=== PATIENT | male | born 1995 | race Caucasian/White ===

== ENCOUNTER 2016-06-18 07:07 | Emergency (ER) | payer BC ==
[2016-06-18 07:22] VITALS: BP 110/72
[2016-06-18] MEDS ORDERED: Ketorolac INJ* 60 MG/2 ML VIAL IM ONE (08:22)
[2016-06-18] MEDS ORDERED: Ketorolac INJ* 60 MG/2 ML VIAL ONE (08:25)
--- NOTE | 2016-06-18 08:54 | UC ---
Christopher Basurto Karl, scribed for Monica Avlies DO on 06/18/16 at 0715 . Back Pain HPI - HPI Summary HPI Summary: Pt is a 20 y/o male that presents to [facility] c/o lower back pain that began last night after working out. Pt reported that he did not properly warm up or stretch his back, and felt a shudder/spasm in his middle/right lower back while doing a squat and has had pain ever since. Pt stated he cannot move his head down and that his back pain is non-radiating at a 7/10 secondary to motions in certain directions such as looking down and sitting up. Pt's pain is alleviated when he is in a certain position at rest. Pt denied numbness, weakness, tingling , bowel/bladder changes and any other health problems. Hx: similar episode earlier this year. - History of Current Complaint Stated Complaint: BACK MUSCLE PAIN Hx Obtained From: Patient Onset/Duration: Sudden Onset, Lasting Days - 1 Timing: Intermittent - with certain movements Severity Initially: Moderate Severity Currently: Moderate Pain Intensity: 8 - back pain Pain Scale Used: 0-10 Numeric Back Pain: Is Discrete @ - mid-right lower back Character: Spasmodic Aggravating: Movement Alleviating: Rest, Position Associated Signs And Symptoms: Negative: Swelling, Redness, Bruising, Fever, Weakness, Numbness, Tingling, Abdominal Pain, Bladder Incontinence, Bowel Incontinence - Risk Factors Cauda Equina Risk Factors: Negative - Allergies/Home Medications Allergies/Adverse Reactions: Allergies Allergy/AdvReac Type Severity Reaction Status Date / Time No Known Allergies Allergy Verified 01/20/16 13:07 Home Medications: Home Medications Diphenhydramine-Acetaminophen [Tylenol Pm Extra Strength 500-25 mg] 06/18/16 [ History] PMH/Surg Hx/FS Hx/Imm Hx Previously Healthy: Yes Endocrine History Of: Denies: Diabetes, Thyroid Disease Cardiovascular History Of: Denies: Cardiac Disorders, Hypertension, Pacemaker/ICD Respiratory History Of: Denies: COPD, Asthma GI/ History Of: Denies: Gastroesophageal Reflux, Renal Disease Neurological History Of: Denies: CVA, Dementia, Seizures Other History Of: Negative For: Anticoagulant Therapy - Surgical History Surgical History: Yes Surgery Procedure, Year, and Place: Left ear tubes. Left wrist surgery fracture 's repaired/resetting - Family History Known Family History: Positive: Cardiac Disease - grandfather - CHF, Other - Colon - CA, RA Negative: Hypertension - Social History Alcohol Use: Occasionally - pt stated that he stopped drinking this year (2017) Alcohol Amount: 1-2 drinks per night Substance Use Type: None Smoking Status (MU): Former Smoker Type: Cigarettes Amount Used/How Often: cigarette here and there, not an every day smoker Have You Smoked in the Last Year: No - Immunization History Most Recent Influenza Vaccination: not this season Most Recent Tetanus Shot: UTD Review of Systems Constitutional: Negative Skin: Negative Eyes: Negative ENT: Negative Respiratory: Negative Cardiovascular: Negative Gastrointestinal: Negative Genitourinary: Negative Motor: Negative Neurovascular: Negative Musculoskeletal: Decreased ROM - back/head/neck, Myalgia - lower mid-right back Neurological: Negative Psychological: Negative All Other Systems Reviewed And Are Negative: Yes Physical Exam Triage Information Reviewed: Yes Appearance: Well-Appearing, No Pain Distress, Well-Nourished Vital Signs: Temp Pulse Resp BP Pulse Ox 98.1 F 72 16 110/72 100 06/18/16 07:17 06/18/16 07:17 06/18/16 07:17 06/18/16 07:17 06/18/16 07:17 Vital Signs Reviewed: Yes Eyes: Positive: Conjunctiva Clear. Negative: Discharge ENT: Positive: Hearing grossly normal. Negative: Muffled/hoarse voice Neck exam: Normal Neck: Positive: Supple Respiratory: Positive: Lungs clear, Normal breath sounds, No respiratory distress, No accessory muscle use Cardiovascular: Positive: RRR, No Murmur Musculoskeletal Exam: Other - paraspinal spasm, psoas tender point on the right Musculoskeletal: Positive: ROM Limited @ - with flexion and extension Neurological: Positive: Alert, Muscle Tone Normal Psychological Exam: Normal Psychological: Positive: Age Appropriate Behavior Skin Exam: Normal, Other - warm, dry, normal color Back Pain Course/Dx - Differential Dx/Diagnosis Differential Diagnosis/HQI/PQRI: Herniated Disc, Strain, Sprain Provider Diagnoses: low back strain, muscle spasm Discharge - Discharge Plan Condition: Stable Disposition: HOME Prescriptions: Cyclobenzaprine TAB* [Flexeril TAB*] 10 mg PO TID PRN #30 tab PRN Reason: Pain Naproxen [Naproxen 500 MG TABS] 500 mg PO BID #14 tab Patient Education Materials: Low Back Strain (ED), Muscle Spasm (ED) Referrals: Alan Gaspar MD [Primary Care Provider] - 2 Weeks Additional Instructions: MUSCLE RELAXERS: Muscle relaxing medications are usually prescribed for acute muscle spasm or injury to the neck and back. They are often combined with antiinflammatory pain medication for increased relief. You may stop the muscle relaxer when the pain and stiffness have improved. Start the medication again if spasms recur. Muscle relaxers may cause drowsiness, especially with the first dose. Do not operate machinery or drive while under the effects of the medication. Most muscle relaxers last up to 24 hours. Do not combine the medication with alcohol. ANTI-INFLAMMATORY MEDICATION: You have received a prescription for an antiinflammatory agent. This is an excellent, safe drug for pain control. In addition, it has potent antiinflammatory effects which are beneficial, especially in the treatment of injuries, arthritis, or tendonitis. It's best to take this medicine with food. Persons with ulcer disease or allergy to aspirin should notify their physician of this before taking this drug. Take the medication exactly as prescribed. Don't take additional doses unless instructed to do so by your doctor. If you develop wheezing, shortness of breath, hives, faintness, stomach pain, vomiting, or dark black stools, return for re-evaluation at once. ALTERNATE HOT AND COLD ONE RIGHT AFTER THE OTHER FOR 10-20 MINUTES EACH. ICE PACKS: Apply ice packs frequently against the painful area. Many different schedules are recommended, such as "20 minutes on, 20 minutes off" or "one hour ice, two hours rest." If you need to work, you may need to go longer between ice treatments. You should plan to have the area ice packed AT LEAST one fourth of the time. The ice should be applied over the wrap, tape, or splint, or over a layer of cloth -- not directly against the skin. Some ice bags have a built-in cloth and can be put directly on the skin. WARM PACKS: Apply gentle heat (such as a heating pad or hot water bottle) for about 20 to 30 minutes about every two hours -- at least four times daily. Warmth and elevation will help you make a more rapid recovery, and will ease the pain considerably. Do not use HOT heat, and never apply heat for longer than 30 minutes. The continuous heat can invisibly damage skin and muscles -- even when no burn is seen on the surface. Damaged muscles can make you MORE sore. PHYSICAL THERAPY REFERRAL: You have been prescribed physical therapy. Treatments may include stretching, exercise, application of heat or cold, and other modalities. After an injury, PT can reduce swelling and pain. In recovery, PT is used to restore mobility and strength. Your specific treatment goals are: Reduction of Swelling (EGS, US, ice as needed) __x___ Pain Reduction (EGS, US, ice as needed) TENS Pack Fitting and Instruction Wound Hydrotherapy __x___ Preservation of Mobility Catholic of Mobility Strength Catholic __x___ Work or Sports Hardening This instruction sheet also serves as your PHYSICAL THERAPY REFERRAL! Please take it with you to the therapist, so he/she will be aware of your diagnosis and treatment plan. You may see the physical therapist of your choice for these treatments, but may wish to check with your insurance to be sure the provider you select is covered. It's important to see the doctor to whom you have been referred for follow up. SPORTS PRECAUTIONS: Ask your doctor before returning to any sporting activity! In general, however, you can follow the rule "IF IT DOESN'T FEEL GOOD, DON'T DO IT." Pain indicates stress on the injured area. Begin slowly. Exercise the non-injured areas to preserve muscle tone and fitness. When the pain allows, begin simple motion of the injured area, then progress to active exercise when motion is painfree. Before competition, the area should be normally strong and have full range of motion -- and should be painfree in use. "Playing with pain" is not in the best interest of your health. Usually, some form of protection, such as tape or padding, is desirable for competition for several months after the injury. YOU WOULD LIKELY BENEFIT FROM OSTEOPATHIC MANIPULATION. WE RECOMMEND THAT YOU FIND AN OSTEOPATHIC PHYSICIAN IN YOUR AREA WHO DOES LYMPHATIC, MYOFACIAL AND VISCERAL WORK The documentation as recorded by the Christopher paiz Karl accurately reflects the service I personally performed and the decisions made by me, Monica Aviles DO.
== END 2016-06-18 08:54 | disposition home or self-care (01) ==
LOC: UCEAST 07:07
DX: S39.012A Strain of muscle, fascia and tendon of lower back, initial encounter (principal); M62.830 Muscle spasm of back; X50.3XXA Overexertion from repetitive movements, initial encounter; Y93.B9 Activity, other involving muscle strengthening exercises
CPT/HCPCS: 96372; 99212; G0463; J1885

== ENCOUNTER 2016-08-12 12:42 | Emergency (ER) | payer BC ==
[2016-08-12 13:31] VITALS: BP 130/69
--- NOTE | 2016-08-12 14:31 | UC ---
Skin Complaint HPI - HPI Summary HPI Summary: Pt reports that he fell running yesterday evening on the ice. Reports that front teeth upper and lower went into upper and lower lips. Has abrasion on upper lip and nose and upper lip and lower lip are swollen and tender. - History of Current Complaint Chief Complaint: UCLaceration Time Seen by Provider: 08/12/16 13:55 Stated Complaint: FACE/MOUTH INJURY Hx Obtained From: Patient Onset/Duration: Sudden Onset, Lasting Hours Skin Exposure Onset/Duration: Hours Ago Timing: Constant Onset Severity: Mild Current Severity: Mild Pain Intensity: 7 Pain Scale Used: 0-10 Numeric Location: Face, Other - lips Character: Redness, Raised, Painful Aggravating: Touch Alleviating: Cold Compresses Associated Signs & Symptoms: Positive: Tenderness Related History: Trauma - fall while - Allergy/Home Medications Allergies/Adverse Reactions: Allergies Allergy/AdvReac Type Severity Reaction Status Date / Time No Known Allergies Allergy Verified 01/20/16 13:07 Review of Systems Constitutional: Negative Skin: Other - abrasion Eyes: Negative ENT: Other - abrasion to upper and lower lip Respiratory: Negative Cardiovascular: Negative Gastrointestinal: Negative Genitourinary: Negative Motor: Negative Neurovascular: Negative Musculoskeletal: Negative Neurological: Negative Psychological: Negative All Other Systems Reviewed And Are Negative: Yes PMH/Surg Hx/FS Hx/Imm Hx Previously Healthy: Yes Endocrine History Of: Denies: Diabetes, Thyroid Disease Cardiovascular History Of: Denies: Cardiac Disorders, Hypertension, Pacemaker/ICD Respiratory History Of: Denies: COPD, Asthma GI/ History Of: Denies: Gastroesophageal Reflux, Ulcer, Renal Disease Neurological History Of: Denies: CVA, Dementia, Seizures Other History Of: Negative For: Anticoagulant Therapy - Surgical History Surgical History: Yes Surgery Procedure, Year, and Place: Left ear tubes. Left wrist surgery fracture 's repaired/resetting - Family History Known Family History: Positive: None, Cardiac Disease - grandfather - CHF, Other - Colon - CA, RA Negative: Hypertension - Social History Lives: With Family Alcohol Use: None Alcohol Amount: 1-2 drinks per night Substance Use Type: None Smoking Status (MU): Former Smoker Type: Cigarettes Amount Used/How Often: cigarette here and there, not an every day smoker Have You Smoked in the Last Year: No - Immunization History Most Recent Influenza Vaccination: not this season Most Recent Tetanus Shot: 2013 Physical Exam Triage Information Reviewed: Yes Appearance: Well-Appearing Vital Signs: Initial Vital Signs Temp 98.9 F 08/12/16 13:23 Pulse 68 08/12/16 13:23 Resp 16 08/12/16 13:23 BP 130/69 08/12/16 13:23 Pulse Ox 100 08/12/16 13:23 Vital Signs Reviewed: Yes ENT Exam: Other - upper an dlower lip innr lips, swollen and with abrasion where teeth went into lips Dental Exam: Normal Neck exam: Normal Respiratory Exam: Normal Cardiovascular Exam: Normal Abdominal Exam: Normal Musculoskeletal Exam: Normal Neurological Exam: Normal Psychological Exam: Normal Skin Exam: Other - abrsion to upper lip and nose Course/Dx - Differential Diagnoses - Skin Complaint Differential Diagnoses: Other - abrasions - Diagnoses Provider Diagnoses: abrasions Discharge - Discharge Plan Condition: Stable Disposition: HOME Prescriptions: Cephalexin CAP* [Keflex 500 CAP*] 500 mg PO Q12H #10 cap Lidocaine 2% VISCOUS* [Xylocaine 2% Viscous*] 15 ml SWISH SPIT Q4H PRN #1 btl PRN Reason: Pain Mupirocin 2% OINT* [Bactroban 2 % Oint*] 1 applic TOPICAL BID #1 tube Patient Education Materials: Abrasion (ED) Referrals: Alan Gaspar MD [Primary Care Provider] - Additional Instructions: Please follow up with your PCP or return to clinic as needed.
== END 2016-08-12 14:15 | disposition home or self-care (01) ==
LOC: UCEAST 12:42
DX: S00.511A Abrasion of lip, initial encounter (principal); S00.31XA Abrasion of nose, initial encounter; Z87.891 Personal history of nicotine dependence; W00.0XXA Fall on same level due to ice and snow, initial encounter; Y93.02 Activity, running; Y92.9 Unspecified place or not applicable
CPT/HCPCS: 99212; G0463

== ENCOUNTER 2016-08-13 05:24 | Emergency (ER) | payer BC ==
[2016-08-13 05:31] VITALS: BP 110/52
[2016-08-13] MEDS ORDERED: traMADol TAB* 50 MG PO ONE (05:41)
[2016-08-13] MEDS ORDERED: traMADol TAB* 50 MG ONE (05:44)
--- NOTE | 2016-08-13 05:55 | ED ---
Rodriguez Basurto Matthew, scribed for Gaudencio Carver on 08/13/16 at 0550 . Throat Pain/Nasal Congestion - HPI Summary HPI Summary: A 21 y/o male presents to the ED with constant, gradually worsening dental pain since two days ago. The pain is rated 7/10 in severity. The patient states that he fell and cut the inside of his mouth and underneath his nose. He was seen by his PCP yesterday who prescribed him Abx and lidocaine mouthwash. Associated symptoms including swelling and pain. - History of Current Complaint Chief Complaint: EDDentalPain Hx Obtained From: Patient Onset/Duration: Sudden Onset, Lasting Days, Still Present Severity: Mild Associated Signs And Symptoms: Positive: Negative Cough: None - Allergies/Home Medications Allergies/Adverse Reactions: Allergies Allergy/AdvReac Type Severity Reaction Status Date / Time No Known Allergies Allergy Verified 01/20/16 13:07 PMH/Surg Hx/FS Hx/Imm Hx Endocrine/Hematology History: Denies: Hx Anticoagulant Therapy, Hx Diabetes, Hx Thyroid Disease Cardiovascular History: Denies: Hx Hypertension, Hx Pacemaker/ICD Respiratory History: Denies: Hx Asthma, Hx Chronic Obstructive Pulmonary Disease (COPD) GI History: Denies: Hx Ulcer History: Denies: Hx Renal Disease Neurological History: Denies: Hx Dementia, Hx Seizures Psychiatric History: Denies: Hx Substance Abuse - Cancer History Cancer Type, Location and Year: N - Surgical History Surgery Procedure, Year, and Place: Left ear tubes. Left wrist surgery fracture 's repaired/resetting - Immunization History Date of Tetanus Vaccine: THis year, per patient. Infectious Disease History: No Infectious Disease History: Denies: Hx Clostridium Difficile, Hx Hepatitis, Hx Human Immunodeficiency Virus (HIV), Hx of Known/Suspected MRSA, Hx Shingles, Hx Tuberculosis, Hx Known/ Suspected VRE, Hx Known/Suspected VRSA, History Other Infectious Disease, Traveled Outside the [place] in Last 30 Days - Family History Known Family History: Positive: Cardiac Disease - grandfather - CHF, Other - Colon - CA, RA Negative: Hypertension - Social History Alcohol Use: None Alcohol Amount: 1-2 drinks per night Substance Use Type: Reports: None Smoking Status (MU): Former Smoker Type: Cigarettes Amount Used/How Often: cigarette here and there, not an every day smoker Have You Smoked in the Last Year: No Review of Systems Constitutional: Negative Eyes: Negative ENT: Other - ulcerations to the upper and lower inside lip; swelling at the sight Cardiovascular: Negative Respiratory: Negative Gastrointestinal: Negative Genitourinary: Negative Musculoskeletal: Negative Skin: Other - abrasion under the nose Neurological: Negative Psychological: Normal All Other Systems Reviewed And Are Negative: Yes Physical Exam Triage Information Reviewed: Yes Vital Signs On Initial Exam: Initial Vitals Temp Pulse Resp BP Pulse Ox 97.0 F 53 15 110/52 100 08/13/16 05:25 08/13/16 05:25 08/13/16 05:25 08/13/16 05:25 08/13/16 05:25 Vital Signs Reviewed: Yes Appearance: Positive: Well-Appearing, No Pain Distress Skin: Positive: Dry, Other - Abrasion under the nose Head/Face: Positive: Normal Head/Face Inspection Eyes: Positive: EOMI, KATI ENT: Positive: Normal ENT inspection Dental: Positive: Other - small ulcerations inside the lower lip and upper lip; 2-3mm in size Neck: Positive: Supple, Nontender Respiratory/Lung Sounds: Positive: Clear to Auscultation, Breath Sounds Present Cardiovascular: Positive: RRR, Pulses are Symmetrical in both Upper and Lower Extremities Abdomen Description: Positive: Nontender, Soft Bowel Sounds: Positive: Present Musculoskeletal: Positive: Normal, Strength/ROM Intact Neurological: Positive: Normal, Sensory/Motor Intact, Alert, Oriented to Person Place, Time Psychiatric: Positive: Affect/Mood Appropriate Diagnostics - Vital Signs Vital Signs Temp Pulse Resp BP Pulse Ox 08/13/16 05:25 97.0 F 53 15 110/52 100 - Laboratory Lab Statement: Any lab studies that have been ordered have been reviewed, and results considered in the medical decision making process. EENT Course/Dx - Course Assessment/Plan: A 21 y/o male presents to the ED with ulcerations 2-3mm on the inside of the upper and lower lip. He was already prescribed Abx by his PCP 1 days ago. The patient was discharged home on Tramadol and will follow-up with his PCP. - Diagnoses Provider Diagnoses: Aphthous ulcer of mouth Discharge - Discharge Plan Condition: Stable Disposition: HOME Prescriptions: Tramadol HCl [Ultram] 50 mg PO TID #10 tab MDD 3 Patient Education Materials: Tramadol (By mouth), Canker Sores (ED) Referrals: Alan Gaspar MD [Primary Care Provider] - 4 Days Additional Instructions: Please follow-up with your primary care physician in 4 days. The documentation as recorded by the Rodriguez paiz Matthew accurately reflects the service I personally performed and the decisions made by , Gaudencio Carver.
== END 2016-08-13 05:51 | disposition home or self-care (01) ==
LOC: ED 05:24
DX: K12.0 Recurrent oral aphthae (principal); S00.31XA Abrasion of nose, initial encounter; W19.XXXA Unspecified fall, initial encounter; Y93.9 Activity, unspecified; Y92.9 Unspecified place or not applicable; Z87.891 Personal history of nicotine dependence
CPT/HCPCS: 99282; A9270-GY

== ENCOUNTER 2016-08-14 12:04 | Emergency (ER) | payer BC ==
[2016-08-14 12:17] VITALS: BP 130/60
--- NOTE | 2016-08-14 12:26 | UC ---
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 - Allergy/Home Medications Allergies/Adverse Reactions: Allergies Allergy/AdvReac Type Severity Reaction Status Date / Time No Known Allergies Allergy Verified 08/14/16 12:17 PMH/Surg Hx/FS Hx/Imm Hx Previously Healthy: No - mouth abrasion Endocrine History Of: Denies: Diabetes, Thyroid Disease Cardiovascular History Of: Denies: Cardiac Disorders, Hypertension, Pacemaker/ICD Respiratory History Of: Denies: COPD, Asthma GI/ History Of: Denies: Gastroesophageal Reflux, Ulcer, Renal Disease Neurological History Of: Denies: CVA, Dementia, Seizures Other History Of: Negative For: Anticoagulant Therapy - Surgical History Surgical History: None Surgery Procedure, Year, and Place: Left ear tubes. Left wrist surgery fracture 's repaired/resetting - Family History Known Family History: Positive: None, Cardiac Disease - grandfather - CHF, Other - Colon - CA, RA Negative: Hypertension - Social History Alcohol Use: None Alcohol Amount: 1-2 drinks per night Substance Use Type: None Smoking Status (MU): Former Smoker Type: Cigarettes Amount Used/How Often: cigarette here and there, not an every day smoker Have You Smoked in the Last Year: No - Immunization History Most Recent Influenza Vaccination: not this season Most Recent Tetanus Shot: 2013 Review of Systems Constitutional: Negative Skin: Other Eyes: Negative ENT: Negative Respiratory: Negative Cardiovascular: Negative Gastrointestinal: Negative Genitourinary: Negative Motor: Negative Neurovascular: Negative Musculoskeletal: Negative Neurological: Negative Psychological: Negative All Other Systems Reviewed And Are Negative: Yes Physical Exam Triage Information Reviewed: Yes Appearance: No Pain Distress, Well-Nourished Vital Signs: Initial Vital Signs Temp 98.6 F 08/14/16 12:13 Pulse 60 08/14/16 12:13 Resp 18 08/14/16 12:13 BP 130/60 08/14/16 12:13 Pulse Ox 100 08/14/16 12:13 Vital Signs Reviewed: Yes Eyes: Positive: Conjunctiva Clear ENT: Positive: Pharynx normal, TMs normal. Negative: Nasal congestion Dental Exam: Normal Neck: Positive: Supple, No Lymphadenopathy Respiratory: Positive: Lungs clear, Normal breath sounds, No respiratory distress Cardiovascular: Positive: RRR, No Murmur, Pulses Normal Abdomen Description: Positive: Nontender, Soft Bowel Sounds: Positive: Present Musculoskeletal Exam: Normal Neurological: Positive: Alert Psychological Exam: Normal Skin: Positive: Other - inferior to nase and superior to upper lip- abrasion healing without erythema or edema inside of lower and upper lips- ulcers surrounded by edema and erythema Course/Dx - Course Course Of Treatment: exam completed. cellulitis around mouth ulcers. will change from kelfex to clindamycin. pain control ibuprofen. followup with PCP - Differential Dx - Multi-Symptom Provider Diagnoses: cellulitis surrounding mouth ulcerations Discharge - Discharge Plan Condition: Stable Disposition: HOME Prescriptions: Clindamycin Cap(NF) [Cleocin 300 mg Cap(NF)] 300 mg PO TID #30 cap Patient Education Materials: Cellulitis (ED) Referrals: Alan Gaspar MD [Primary Care Provider] - Additional Instructions: Stop taking cephalexin Start clindamycin as directed Increase fluids and rest Take ibuprofen 800 mg three times a day to reduce inflammation and pain gargle with salt water 3x day Please review your discharge instructions. If your symptoms do not improve please call your primary care provider or return to urgent care
== END 2016-08-14 13:03 | disposition home or self-care (01) ==
LOC: UCEAST 12:04
DX: K12.1 Other forms of stomatitis (principal); K12.2 Cellulitis and abscess of mouth; Z72.0 Tobacco use
CPT/HCPCS: 99212; G0463

== ENCOUNTER 2016-11-29 17:47 | Emergency (ER) | payer BC ==
[2016-11-29 17:52] VITALS: BP 96/56
--- NOTE | 2016-11-29 18:07 | UC ---
General HPI - HPI Summary HPI Summary: TICK REMOVED FROM LEFT WRIST TODAY. THINKS TICK WAS ON WRIST YESTERDAY. - History of Current Complaint Chief Complaint: Carlos Stated Complaint: TICK BITE Time Seen by Provider: 11/29/16 17:49 Hx Obtained From: Patient Onset/Duration: Gradual Onset, Lasting Hours, Still Present Onset Severity: Mild Current Severity: None Associated Signs & Symptoms: Negative: Back Pain, Decreased Responsiveness, Dizziness, Edema, Fever, Headache, Nausea, SOB, Vomiting, Weakness - Allergy/Home Medications Allergies/Adverse Reactions: Allergies Allergy/AdvReac Type Severity Reaction Status Date / Time No Known Allergies Allergy Verified 11/29/16 17:52 Home Medications: Home Medications Multiple Vitamins W/ Minerals [Vitamins & Minerals] 1 tab PO DAILY 11/29/16 [ History Confirmed 11/29/16] PMH/Surg Hx/FS Hx/Imm Hx Previously Healthy: Yes Other History Of: Negative For: Anticoagulant Therapy - Surgical History Surgical History: Yes Surgery Procedure, Year, and Place: Left ear tubes. Left wrist surgery fracture 's repaired/resetting - Family History Known Family History: Positive: None, Cardiac Disease - grandfather - CHF, Other - Colon - CA, RA Negative: Hypertension - Social History Occupation: Employed Full-time Lives: With Family Alcohol Use: None Alcohol Amount: 1-2 drinks per night Substance Use Type: None Smoking Status (MU): Former Smoker Type: Cigarettes Amount Used/How Often: cigarette here and there, not an every day smoker Have You Smoked in the Last Year: No - Immunization History Most Recent Influenza Vaccination: not this season Most Recent Tetanus Shot: 2013 Review of Systems Constitutional: Negative Skin: Rash - TICK REMOVED LEFT WRIST Eyes: Negative ENT: Negative Respiratory: Negative Cardiovascular: Negative Gastrointestinal: Negative Genitourinary: Negative Motor: Negative Neurovascular: Negative Musculoskeletal: Negative Neurological: Negative Psychological: Negative All Other Systems Reviewed And Are Negative: Yes Physical Exam Triage Information Reviewed: Yes Appearance: Well-Appearing, No Pain Distress, Well-Nourished Vital Signs: Initial Vital Signs Temp 98.4 F 11/29/16 17:49 Pulse 68 11/29/16 17:49 Resp 16 11/29/16 17:49 BP 96/56 11/29/16 17:49 Pulse Ox 100 11/29/16 17:49 Vital Signs Reviewed: Yes Eye Exam: Normal ENT Exam: Normal ENT: Positive: Normal ENT inspection, Hearing grossly normal, Pharynx normal, TMs normal Dental Exam: Normal Neck exam: Normal Neck: Positive: Supple, Nontender, No Lymphadenopathy Respiratory Exam: Normal Respiratory: Positive: Chest non-tender, Lungs clear, Normal breath sounds, No respiratory distress Cardiovascular Exam: Normal Cardiovascular: Positive: RRR, No Murmur, Pulses Normal, Brisk Capillary Refill Abdominal Exam: Normal Abdomen Description: Positive: Nontender, No Organomegaly Musculoskeletal Exam: Normal Musculoskeletal: Positive: Strength Intact, ROM Intact, No Edema Neurological Exam: Normal Psychological Exam: Normal Psychological: Positive: Normal Response To Family Skin Exam: Normal Course/Dx - Differential Dx - Multi-Symptom Differential Diagnoses: Metabolic Abnormality Provider Diagnoses: TICK BITE PROPHYLAXIS Discharge - Discharge Plan Condition: Stable Disposition: HOME Prescriptions: DOXYcycline CAP(*) [DOXYcycline 100MG CAP(*)] 200 mg PO ONCE #2 cap Patient Education Materials: Tick Bite (ED) Referrals: Alan Gaspar MD [Primary Care Provider] -
== END 2016-11-29 18:08 | disposition home or self-care (01) ==
LOC: UCEAST 17:47
DX: Z29.8 Encounter for other specified prophylactic measures (principal); Z87.891 Personal history of nicotine dependence
CPT/HCPCS: 99212; G0463

== ENCOUNTER → 2017-04-14 21:41 | Emergency (ER) | payer SELFPAY ==
[~2017-04-14 21:41] MED LIST: PPD test dose* 5 TU/0.1 ML TEST (*USE PPD ORDER SET*) ONE
== END | disposition home or self-care (01) ==
LOC: OHEAST 21:41
DX: Z11.1 Encounter for screening for respiratory tuberculosis (principal)

== ENCOUNTER 2017-04-27 20:11 | Emergency (ER) | payer BC ==
[2017-04-27 20:22] VITALS: BP 129/65
--- NOTE | 2017-04-27 21:17 | UC ---
Skin Complaint HPI - HPI Summary HPI Summary: Patient is concerned about recent dx of Molluscum seeking information and referrals - History of Current Complaint Chief Complaint: UCSkin Time Seen by Provider: 04/27/17 21:03 Stated Complaint: RASH Hx Obtained From: Patient Onset/Duration: Sudden Onset, Lasting Days Timing: Constant Location: Discrete - genital area Aggravating Factor(s): Nothing Alleviating Factor(s): Nothing Associated Signs & Symptoms: Positive: Negative - Allergy/Home Medications Allergies/Adverse Reactions: Allergies Allergy/AdvReac Type Severity Reaction Status Date / Time No Known Allergies Allergy Verified 04/27/17 20:22 Home Medications: Home Medications NK [No Home Medications Reported] 04/27/17 [History Confirmed 04/27/17] Review of Systems Constitutional: Negative Skin: Rash Eyes: Negative ENT: Negative Respiratory: Negative Cardiovascular: Negative Gastrointestinal: Negative Genitourinary: Negative Motor: Negative Neurovascular: Negative Musculoskeletal: Negative Neurological: Negative Psychological: Negative Is Patient Immunocompromised?: No All Other Systems Reviewed And Are Negative: Yes PMH/Surg Hx/FS Hx/Imm Hx Previously Healthy: Yes Other History Of: Negative For: Anticoagulant Therapy - Surgical History Surgical History: Yes Surgery Procedure, Year, and Place: Left ear tubes. Left wrist surgery fracture 's repaired/resetting - Family History Known Family History: Positive: None, Cardiac Disease - grandfather - CHF, Other - Colon - CA, RA Negative: Hypertension - Social History Occupation: Student Lives: With Family Alcohol Use: Occasionally Alcohol Amount: 1-2 drinks per night Substance Use Type: None Smoking Status (MU): Former Smoker Type: Cigarettes Amount Used/How Often: cigarette here and there, not an every day smoker Have You Smoked in the Last Year: No - Immunization History Most Recent Influenza Vaccination: not this season Most Recent Tetanus Shot: 2013 Physical Exam Triage Information Reviewed: Yes Appearance: Well-Appearing, No Pain Distress, Well-Nourished Vital Signs: Initial Vital Signs Temp 97.6 F 04/27/17 20:17 Pulse 73 04/27/17 20:17 Resp 12 04/27/17 20:17 BP 129/65 04/27/17 20:17 Pulse Ox 100 04/27/17 20:17 Vital Signs Reviewed: Yes Eye Exam: Normal Eyes: Positive: Conjunctiva Clear ENT Exam: Normal ENT: Positive: Normal ENT inspection, Hearing grossly normal. Negative: Trismus , Muffled voice, Hoarse voice Dental Exam: Normal Neck exam: Normal Neck: Positive: 1 Respiratory Exam: Normal Respiratory: Positive: No respiratory distress, No accessory muscle use Cardiovascular Exam: Normal Cardiovascular: Positive: RRR, Brisk Capillary Refill Musculoskeletal Exam: Normal Musculoskeletal: Positive: Strength Intact, ROM Intact, No Edema Neurological Exam: Normal Neurological: Positive: Alert, Muscle Tone Normal Psychological Exam: Normal Skin Exam: Other Skin: Positive: Other - self report Molluscum Course/Dx - Course Course Of Treatment: referal to Dr. Toribio for treatment follow up this week - Diagnoses Provider Diagnoses: Molluscum Discharge - Discharge Plan Condition: Stable Disposition: HOME Patient Education Materials: Molluscum Contagiosum (ED) Referrals: Gallito Toribio MD [Medical Doctor] - 3 Days
== END 2017-04-27 21:33 | disposition home or self-care (01) ==
LOC: UCEAST 20:11
DX: B08.1 Molluscum contagiosum (principal); Z87.891 Personal history of nicotine dependence; Z72.89 Other problems related to lifestyle
CPT/HCPCS: 99211; G0463

== ENCOUNTER 2017-07-30 13:44 | Emergency (ER) | payer BC ==
[2017-07-30 14:46] VITALS: BP 96/64
--- NOTE | 2017-07-30 15:43 | UC ---
Eye Complaint HPI - HPI Summary HPI Summary: 22 y/o male presents to the urgent care c/o tiny dots that itches in the lateral side of his RT eye for the past 5 days. Pt reports her girlfriend had similar symptoms last week and later she developed a stye. Pt denies eye pain, eye drainage, photophobia, visual disturbance, URI, ATKINSON, chest pain, SOB, abdominal pain,N/V/D - History of Current Complaint Chief Complaint: UCSkin Stated Complaint: BUMPS AROUND EYE Time Seen by Provider: 07/30/17 15:40 Hx Obtained From: Patient Onset/Duration: Gradual Onset, Lasting Days - 5 days, Still Present Timing: Constant Severity Initially: Mild Severity Currently: Mild Pain Intensity: 0 Pain Scale Used: 0-10 Numeric Location of Injury: Periorbital - lateral side of RT eye w/ discrete rash Aggravating Factor(s): Other - itching Alleviating Factor(s): Nothing Associated Signs And Symptoms: Negative: Photophobia, Drainage (Clear), Drainage (Purulent), Vision Impairment Bilateral, Fever, Swelling - Risk Factors Penetrating Injury Risk Factor: Negative Acute Glaucoma Risk Factors: Negative - Allergies/Home Medications Allergies/Adverse Reactions: Allergies Allergy/AdvReac Type Severity Reaction Status Date / Time No Known Allergies Allergy Verified 04/27/17 20:22 PMH/Surg Hx/FS Hx/Imm Hx Previously Healthy: Yes - Pt denies PMHX Other History Of: Negative For: Anticoagulant Therapy - Surgical History Surgical History: Yes Surgery Procedure, Year, and Place: Left ear tubes. Left wrist surgery fracture 's repaired/resetting - Family History Known Family History: Positive: Cardiac Disease - grandfather - CHF, Hypertension Family History: Colon - CA, RA - Social History Occupation: Employed Full-time Lives: With Family Alcohol Use: Rare Alcohol Amount: 1-2 drinks per night Substance Use Type: None Smoking Status (MU): Smoker, Current Status Unknown Type: Cigarettes Amount Used/How Often: cigarette here and there, not an every day smoker Have You Smoked in the Last Year: No - Immunization History Most Recent Influenza Vaccination: not this season Most Recent Tetanus Shot: 2013 Review of Systems Constitutional: Negative Skin: Negative Eyes: Other - lateral side of Rt eye w/ irritation ENT: Negative Respiratory: Negative Cardiovascular: Negative Gastrointestinal: Negative Genitourinary: Negative Motor: Negative Neurovascular: Negative Musculoskeletal: Negative Neurological: Negative Psychological: Negative Is Patient Immunocompromised?: No All Other Systems Reviewed And Are Negative: Yes Physical Exam Triage Information Reviewed: Yes Vital Signs: Initial Vital Signs Temp 96.0 F 07/30/17 14:40 Pulse 64 07/30/17 14:40 Resp 16 07/30/17 14:40 BP 96/64 07/30/17 14:40 Pulse Ox 100 07/30/17 14:40 - Additional Comments Vital Signs Reviewed: Yes General: Well appearing, well nourished male in no apparent pain distress Eyes: Visual acuity: WNL,Visual rooney: full to confrontation.Lateral side of periorbital RT eye w/ a discrete erythematous papules, no vesicles, no drainage , non tender to palpation, no swelling observed. PERRLA, EOMI intact w/out limitation or complaint of pain. eyelashes clear. B/L conjunctiva clear, No ciliary flush. No chemosis, No photophobia. Normal fundoscopic exam; no proptosis, exophthalmos, nystagmus. eyelids WNL. ENT: Positive: Normal ENT inspection, Hearing grossly normal, Pharynx normal, Nasal congestion, Nasal drainage - clear, TMs normal - B/L external ear canal clear , TM's WNL. Negative: Tonsillar swelling, Tonsillar exudate Neck: Positive: Supple, Nontender, No Lymphadenopathy Respiratory: Positive: Chest nontender, Lungs clear, Normal breath sounds, No respiratory distress Cardiovascular: Positive: RRR, No Murmur, Pulses Normal, Brisk Capillary Refill Abdomen Description: Positive: Nontender, No Organomegaly, Soft. Negative: CVA Tenderness (R), CVA Tenderness (L) Bowel Sounds: Positive: Present Musculoskeletal: Positive: Strength Intact, ROM Intact, No Edema Neurological Exam: Normal Psychological Exam: Normal Skin Exam: Normal Eye Complaint Course/Dx - Course Course Of Treatment: 22 y/o male presents to the urgent care c/o tiny dots that itches in the lateral side of his RT eye for the past 5 days. Pt reports her girlfriend had similar symptoms last week and later she developed a stye. Pt denies eye pain, eye drainage, photophobia, URI, ATKINSON, chest pain, SOB, abdominal pain,N/V/D. Hx obtained. Pt w/ unspecified rash, most likely contact dermatitis. Pt Rx Hydrocortisone topical cream to alleviate symptoms. Pt advised if not improvement of symptoms to f/u w/ PCP or opthalmologist for further evaluation and treatment. - Differential Dx/Diagnosis Differential Diagnosis/HQI/PQRI: Conjunctivitis, Periorbital Cellulitis, Orbital Cellulitis, Other - rash, contact dermatitis, shingles, Provider Diagnoses: 1-Contact dermatitis Discharge - Discharge Plan Condition: Stable Disposition: HOME Prescriptions: Hydrocortisone 1% CREAM* [Hytone Cream 1%*] 1 applic TOPICAL BID #1 tube Patient Education Materials: Dermatitis (ED) Referrals: Alan Gaspar MD [Primary Care Provider] - If Needed Additional Instructions: 1-Please apply medication as directed. Avoid contact w/ your eyes. wash your eyelid with baby Alexy shampoo while taking a shower every day x 1 week 2-If symptoms do not improve or worsen please f/u with your PCP or return to the urgent care for further evaluation and treatment.
== END 2017-07-30 16:12 | disposition home or self-care (01) ==
LOC: UCEAST 13:44
DX: L25.9 Unspecified contact dermatitis, unspecified cause (principal); Z72.0 Tobacco use
CPT/HCPCS: 99212; G0463

== ENCOUNTER 2018-02-24 15:24 | Emergency (ER) | payer BC ==
--- NOTE | 2018-02-24 15:33 | UC ---
Laceration HPI - HPI Summary HPI Summary: 22 yo male presents with finger laceration. Abut 15min REDIPPER he tells me that he was cutting open a package with a knife when the knife slipped and he laceration his left index finger. He applied pressure to the area with a napkin and came to . Says his last tetanus was within the last 5 years. - History Of Current Complaint Stated Complaint: FINGER LACERATION Time Seen by Provider: 02/24/18 15:31 Hx Obtained From: Patient Laceration Location: Finger Mechanism Of Injury: Sharp Trauma - Allergies/Home Medications Allergies/Adverse Reactions: Allergies Allergy/AdvReac Type Severity Reaction Status Date / Time No Known Allergies Allergy Verified 02/24/18 15:35 Home Medications: Home Medications NK [No Home Medications Reported] 02/24/18 [History Confirmed 02/24/18] PMH/Surg Hx/FS Hx/Imm Hx - Additional Past Medical History Additional PMH: None Other History Of: Negative For: Anticoagulant Therapy - Surgical History Surgical History: Yes Surgery Procedure, Year, and Place: Left ear tubes. Left wrist surgery fracture 's repaired/resetting - Family History Known Family History: Positive: Cardiac Disease - grandfather - CHF, Hypertension, Other - Colon - CA, RA Family History: Colon - CA, RA - Social History Lives: With Family Alcohol Use: Rare Alcohol Amount: 1-2 drinks per night Substance Use Type: None Smoking Status (MU): Smoker, Current Status Unknown Type: Cigarettes Amount Used/How Often: cigarette here and there, not an every day smoker Have You Smoked in the Last Year: No - Immunization History Most Recent Influenza Vaccination: not this season Most Recent Tetanus Shot: 2013 Review of Systems Constitutional: Negative Skin: Other - Laceration left index finger Respiratory: Negative Cardiovascular: Negative Neurovascular: Negative Neurological: Negative Psychological: Negative All Other Systems Reviewed And Are Negative: Yes Physical Exam - Summary Physical Exam Summary: GENERAL: NAD. WDWN. No pain distress. SKIN: Left index finger: pad and ulnar aspect with 8mm flap-like laceration superior to DIP. Bleeding. Mild subcutaneous tissue exposed. No tendon involvement. NECK: Supple. Nontender. No lymphadenopathy. CHEST: No accessory muscle use. Breathing comfortably and in no distress. CV: Pulses intact. Cap refill <2seconds MSK: Left index finger FROM. NEURO: Alert. PSYCH: Age appropriate behavior. Triage Information Reviewed: Yes Vital Signs: Vital Signs: Temp Pulse Resp BP Pulse Ox 98.3 F 56 16 113/71 100 02/24/18 15:30 02/24/18 15:30 02/24/18 15:30 02/24/18 15:30 02/24/18 15:30 Vital Signs Reviewed: Yes Laceration Repair - Laceration Repair 1 Description: Stellate Laceration Size After Repair: Length (cm) - 0.8 Modified For Repair: No Anesthesia Used: 2.0% Lido Cleansing Completed Via Routine Prep: Yes Closure Material: Sutures Closure Method: Single Layer Suture Of: Skin Suture Type: Nylon - FIVE 6-0 Laceration Course/Dx - Course/Dx Course Of Treatment: A time out was performed, witnessed, and signed. The area was irrigated with 250mL sterile saline. 2mL of 2% lidocaine without epi was administered as a digital block and good anesthetization was achieved. In the usual sterile fashion, FIVE 6-0 nylon interrupted sutures were placed. The wound was bandaged with telfa . Pt tolerated procedure well. - Differential Dx - Laceration/Wound Provider Diagnoses: Laceration left index finger Discharge - Sign-Out/Discharge Documenting (check all that apply): Patient Departure All imaging exams completed and their final reports reviewed: No Studies - Discharge Plan Condition: Stable Disposition: HOME Patient Education Materials: Care For Your Stitches (DC), Laceration (DC) Referrals: Alan Gaspar MD [Primary Care Provider] - Additional Instructions: If you develop a fever, shortness of breath, chest pain, new or worsening symptoms - please call your PCP or go to the ED. 1) Please keep the area bandaged, clean, dry, and intact for the next 24- 48hours. 2) If you develop a fever, colored or thick discharge, increased pain or swelling - please call your PCP or go to the ED. 3) Please return in 10 days to have your FIVE sutures removed. - Billing Disposition and Condition Condition: STABLE Disposition: Home - Attestation Statements Provider Attestation: I was available for consult. This patient was seen by the A[facility]. The patient was not presented to, seen by, or examined by me. -Fidelia
[2018-02-24 15:35] VITALS: BP 113/71
[2018-02-24] MEDS ORDERED: Lidocaine 2% PF * 5 ML VIAL INJ ONE (15:41)
== END 2018-02-24 16:31 | disposition home or self-care (01) ==
LOC: UCEAST 15:24
DX: S61.211A Laceration without foreign body of left index finger without damage to nail, initial encounter (principal); W26.0XXA Contact with knife, initial encounter; Y93.9 Activity, unspecified; Y92.9 Unspecified place or not applicable; Z72.0 Tobacco use
CPT/HCPCS: 12001; 99212; G0463

== ENCOUNTER 2018-03-06 16:28 | Emergency (ER) | payer BC ==
[2018-03-06 16:39] VITALS: BP 107/62
--- NOTE | 2018-03-06 16:41 | UC ---
Laceration HPI - HPI Summary HPI Summary: 22 yo male presents for suture removal. He had FIVE sutures placed to his left index finger by myself on 02/24. He has had no issues. Denies fever, chills, redness, swelling, drainage, or pain. - History Of Current Complaint Chief Complaint: UCSkin Stated Complaint: SUTURE REMOVAL Time Seen by Provider: 03/06/18 16:40 Hx Obtained From: Patient Laceration Location: Finger Pain Intensity: 0 - Allergies/Home Medications Allergies/Adverse Reactions: Allergies Allergy/AdvReac Type Severity Reaction Status Date / Time No Known Allergies Allergy Verified 03/06/18 16:39 PMH/Surg Hx/FS Hx/Imm Hx - Additional Past Medical History Additional PMH: None Other History Of: Negative For: Anticoagulant Therapy - Surgical History Surgical History: Yes Surgery Procedure, Year, and Place: Left ear tubes. Left wrist surgery fracture 's repaired/resetting - Family History Known Family History: Positive: Cardiac Disease - grandfather - CHF, Hypertension, Other - Colon - CA, RA Family History: Colon - CA, RA - Social History Occupation: Employed Full-time Lives: With Family Alcohol Use: Rare Alcohol Amount: 1-2 drinks per night Substance Use Type: None Smoking Status (MU): Smoker, Current Status Unknown Type: Cigarettes Amount Used/How Often: cigarette here and there, not an every day smoker Have You Smoked in the Last Year: No - Immunization History Most Recent Influenza Vaccination: not this season Most Recent Tetanus Shot: 2013 Review of Systems Constitutional: Negative Skin: Other - Left finger sutures in place Respiratory: Negative Cardiovascular: Negative Neurovascular: Negative Musculoskeletal: Negative Neurological: Negative Psychological: Negative All Other Systems Reviewed And Are Negative: Yes Physical Exam - Summary Physical Exam Summary: GENERAL: NAD. WDWN. No pain distress. SKIN: LEFT INDEX FINGER: Five sutures in place. Lac well healed with good approximation. No streaking, bleeding, or drainage. CHEST: No accessory muscle use. Breathing comfortably and in no distress. CV: Pulses intact. Cap refill <2seconds NEURO: Alert. PSYCH: Age appropriate behavior. Triage Information Reviewed: Yes Vital Signs: Initial Vital Signs Temp 98 F 03/06/18 16:33 Pulse 58 03/06/18 16:33 Resp 16 03/06/18 16:33 BP 107/62 03/06/18 16:33 Pulse Ox 100 03/06/18 16:33 Laceration Course/Dx - Course/Dx Course Of Treatment: Sutures removed without difficulty. Pt tolerated well. - Differential Dx - Laceration/Wound Provider Diagnoses: Suture removal Discharge - Sign-Out/Discharge Documenting (check all that apply): Patient Departure All imaging exams completed and their final reports reviewed: No Studies - Discharge Plan Condition: Stable Disposition: HOME Patient Education Materials: Stitches Removal (ED) Referrals: Alan Gaspar MD [Primary Care Provider] - Additional Instructions: If you develop a fever, shortness of breath, chest pain, new or worsening symptoms - please call your PCP or go to the ED. - Billing Disposition and Condition Condition: STABLE Disposition: Home
== END 2018-03-06 16:55 | disposition home or self-care (01) ==
LOC: UCEAST 16:28
DX: S61.211D Laceration without foreign body of left index finger without damage to nail, subsequent encounter (principal); X58.XXXD Exposure to other specified factors, subsequent encounter; Z72.0 Tobacco use

== ENCOUNTER 2018-12-02 14:46 | Emergency (ER) | payer BC ==
[2018-12-02 14:56] VITALS: BP 107/65
[2018-12-02] MEDS ORDERED: predniSONE TAB* 20 MG PO ONE (15:07)
[2018-12-02] MEDS ORDERED: Albuterol HFA INHALER* 8 gm MDI INH ONE (15:08)
--- NOTE | 2018-12-02 15:13 | UC ---
Respiratory Complaint HPI - HPI Summary HPI Summary: The patient is a 23 yo male that has been ill for about a month symptoms wax and wane initially a lot of sinus pressure and nasal congestion for the past 1 1/2 weeks it has felt like it has been in his chest chest tightness/wheezing/occas phlegm no f/c no carroll or mylgias - History of Current Complaint Chief Complaint: UCRespiratory Stated Complaint: COUGH, AND SINUS CONGESTION Time Seen by Provider: 12/02/18 14:57 Hx Obtained From: Patient Onset/Duration: Gradual Onset Timing: Constant Severity Initially: Mild Severity Currently: Mild Pain Intensity: 3 Pain Scale Used: 0-10 Numeric Character: Cough: Nonproductive Aggravating Factors: Exertion, Deep Breaths Associated Signs And Symptoms: Positive: Wheezing, Nasal Congestion Related History: Similar Episode/Dx as: - bronchitis - Allergies/Home Medications Allergies/Adverse Reactions: Allergies Allergy/AdvReac Type Severity Reaction Status Date / Time No Known Allergies Allergy Verified 12/02/18 14:56 PMH/Surg Hx/FS Hx/Imm Hx Previously Healthy: Yes Other History Of: Negative For: Anticoagulant Therapy - Surgical History Surgical History: Yes Surgery Procedure, Year, and Place: Left ear tubes. Left wrist surgery fracture 's repaired/resetting - Family History Known Family History: Positive: Cardiac Disease - grandfather - CHF, Hypertension, Other - Colon - CA, RA Family History: Colon - CA, RA - Social History Alcohol Use: None Alcohol Amount: 1-2 drinks per night Substance Use Type: None Smoking Status (MU): Former Smoker Type: Cigarettes Amount Used/How Often: cigarette here and there, not an every day smoker Have You Smoked in the Last Year: No - Immunization History Most Recent Influenza Vaccination: not this season Most Recent Tetanus Shot: 2013 Review of Systems All Other Systems Reviewed And Are Negative: Yes Constitutional: Positive: Fatigue ENT: Positive: Nasal Discharge, Sinus Congestion Respiratory: Positive: Cough Genitourinary: Positive: Negative Motor: Positive: Negative Neurovascular: Positive: Negative Musculoskeletal: Positive: Negative Neurological: Positive: Negative Psychological: Positive: Negative Physical Exam Triage Information Reviewed: Yes Appearance: Well-Appearing, No Pain Distress, Well-Nourished Vital Signs: Initial Vital Signs Temp 98.9 F 12/02/18 14:50 Pulse 82 12/02/18 14:50 Resp 12 12/02/18 14:50 BP 107/65 12/02/18 14:50 Pulse Ox 100 12/02/18 14:50 Vital Signs Reviewed: Yes Eyes: Positive: Conjunctiva Clear ENT: Positive: Hearing grossly normal, Nasal congestion, TMs normal, Uvula midline. Negative: Nasal drainage, Tonsillar swelling, Tonsillar exudate, Trismus, Muffled voice, Hoarse voice, Dental tenderness, Sinus tenderness Dental Exam: Normal Neck: Positive: Supple, Nontender, No Lymphadenopathy Respiratory: Positive: No respiratory distress, No accessory muscle use, Wheezing Cardiovascular: Positive: RRR, No Murmur Musculoskeletal: Positive: ROM Intact, No Edema Neurological: Positive: Alert Psychological Exam: Normal Skin Exam: Normal Diagnostics - Radiology No standard instances Radiology Interpretation Completed By: Radiologist Summary of Radiographic Findings: NAD Respiratory Course/Dx - Differential Dx/Diagnosis Provider Diagnosis: Acute bronchitis with bronchospasm Discharge - Sign-Out/Discharge Documenting (check all that apply): Patient Departure All imaging exams completed and their final reports reviewed: Yes - Discharge Plan Condition: Stable Disposition: HOME Prescriptions: Amoxicillin PO (*) [Amoxicillin 875 MG (*)] 875 mg PO BID #14 tab predniSONE [Deltasone 20 MG TAB] 40 mg PO DAILY #8 tab Patient Education Materials: Acute Bronchitis (ED), How to Use a Metered-Dose Inhaler and a Spacer (ED) Referrals: Alan Gaspar MD [Primary Care Provider] - 1 Week (if not completely better) - Billing Disposition and Condition Condition: STABLE Disposition: Home
== END 2018-12-02 15:46 | disposition home or self-care (01) ==
LOC: UCEAST 14:46
DX: J20.9 Acute bronchitis, unspecified (principal); Z87.891 Personal history of nicotine dependence
CPT/HCPCS: 71046; 99213; A9270-GY; G0463; J7512

== ENCOUNTER 2018-12-08 13:43 | Emergency (ER) | payer BC ==
[2018-12-08 13:58] VITALS: BP 106/70
--- NOTE | 2018-12-08 14:02 | UC ---
Abdominal Pain Male HPI - HPI Summary HPI Summary: 23 year old male presents with complaints of progressively worsening abdominal pain that started approximately 2-3 hours ago while he was sitting in class. States he is currently on amoxicillin 875 mg BID for bronchitis. Finished a course of prednisone yesterday. States has had some loose stools since starting the antibiotic. Last ate a vegetarian sandwich approximately 1 hour ago. Denies fever, chills, nausea, vomiting, back or flank pain, dysuria, frequency, urgency , or hematuria. - History of Current Complaint Chief Complaint: UCAbdominalPain Stated Complaint: STOMACH PAIN Time Seen by Provider: 12/08/18 13:49 Hx Obtained From: Patient Pain Intensity: 5 - Allergies/Home Medications Allergies/Adverse Reactions: Allergies Allergy/AdvReac Type Severity Reaction Status Date / Time No Known Allergies Allergy Verified 12/08/18 13:50 PMH/Surg Hx/FS Hx/Imm Hx Previously Healthy: Yes - Denies significant PMH Other History Of: Negative For: Anticoagulant Therapy - Surgical History Surgical History: Yes Surgery Procedure, Year, and Place: Left ear tubes. Left wrist surgery fracture 's repaired/resetting - Family History Known Family History: Positive: Cardiac Disease - grandfather - CHF, Hypertension, Other - Colon - CA, RA Family History: Colon - CA, RA - Social History Occupation: Student Lives: With Family Alcohol Use: None Alcohol Amount: 1-2 drinks per night Substance Use Type: None Smoking Status (MU): Light Every Day Tobacco Smoker Type: Cigarettes Amount Used/How Often: cigarette here and there, not an every day smoker Have You Smoked in the Last Year: No - Immunization History Most Recent Influenza Vaccination: not this season Most Recent Tetanus Shot: 2013 Review of Systems All Other Systems Reviewed And Are Negative: Yes Constitutional: Negative: Fever, Chills Respiratory: Positive: Negative Cardiovascular: Positive: Negative Gastrointestinal: Positive: Abdominal Pain, Diarrhea - Loose stool. Negative: Vomiting, Nausea Genitourinary: Negative: Dysuria, Hematuria, Frequency, Urgency Musculoskeletal: Positive: Negative Neurological: Positive: Negative Is Patient Immunocompromised?: No Physical Exam - Summary Physical Exam Summary: GENERAL APPEARANCE: Well developed, well nourished, alert and cooperative, and appears to be in no acute distress. CARDIAC: Normal S1 and S2. No S3, S4 or murmurs. Rhythm is regular. There is no peripheral edema, cyanosis or pallor. Extremities are warm and well perfused. Capillary refill is less than 2 seconds. Peripheral pulses intact. LUNGS: Clear to auscultation without rales, rhonchi, wheezing or diminished breath sounds. ABDOMEN: Positive bowel sounds. Soft, nondistended. Significant tenderness in the lower abdomen more pronounced in the RLQ without guarding or rebound. No masses or hepatosplenomegally. No CVA tenderness. MUSKULOSKELETAL: ROM intact to all extremities. No joint erythema or tenderness. Normal muscular development. Normal gait. SKIN: Skin normal color, texture and turgor with no lesions or eruptions. Triage Information Reviewed: Yes Vital Signs: Initial Vital Signs Temp 98.7 F 12/08/18 13:51 Pulse 77 12/08/18 13:51 Resp 16 12/08/18 13:51 BP 106/70 12/08/18 13:51 Pulse Ox 99 12/08/18 13:51 Vital Signs Reviewed: Yes Abd Pain Male Course/Dx - Course Course Of Treatment: 23 year old male presents with complaints of progressively worsening abdominal pain that started approximately 2-3 hours ago while he was sitting in class. States he is currently on amoxicillin 875 mg BID for bronchitis. Finished a course of prednisone yesterday. States has had some loose stools since starting the antibiotic. Last ate a vegetarian sandwich approximately 1 hour ago. Denies fever, chills, nausea, vomiting, back or flank pain, dysuria, frequency, urgency , or hematuria. Afebrile. VSS. Patient had significant lower abdominal tenderness more pronounced in the RLQ without guarding or rebound and otherwise unremarkable exam. I suspect that this may be an adverse reaction to his antibiotic however based on his history and exam I cannot rule out possible appendicitis. I am recommending that the patient be further evaluated in the ED at this time. He is agreeable to this and is electing to go via private vehicle with his father driving. - Differential Dx/Clinical Impression Differential Diagnosis/HQI/PQRI: Appendicitis, Gall Bladder Disease, Pancreatitis, Renal Colic, Other - Gastroeneteritis, adverse drug reaction Provider Diagnosis: Acute abdominal pain Discharge - Sign-Out/Discharge Documenting (check all that apply): Patient Departure All imaging exams completed and their final reports reviewed: No Studies - Discharge Plan Condition: Stable Disposition: HOME Patient Education Materials: Acute Abdominal Pain (ED) Referrals: Alan Gaspar MD [Primary Care Provider] - Additional Instructions: Based on your history and exam I cannot rule out the possiblity of appendicitis and recommend that you go to the emergency room for further evaluation. Go directly to the emergency room from here. Do not eat or drink anything until you have been evaluated. - Billing Disposition and Condition Condition: STABLE Disposition: Home
== END 2018-12-08 14:19 | disposition home or self-care (01) ==
LOC: UCEAST 13:43
DX: R10.31 Right lower quadrant pain (principal); R19.7 Diarrhea, unspecified; Z72.0 Tobacco use
CPT/HCPCS: 99212; G0463

== ENCOUNTER 2018-12-08 14:33 | Emergency (ER) | payer BC ==
--- NOTE | 2018-12-08 14:50 | ED ---
GI/ HPI - HPI Summary HPI Summary: 23-year-old male presents with sudden onset of lower abdominal pain today. He states the pain radiates across her abdomen. Has been going on for 3 hours. He states the pain was severe but now is better. he states that it hurt to move. no fever. no decrease in appetite. Denies any nausea vomiting. No urinary symptoms. no diarrhea or constipation. had normal bowel movement today. Pain does not radiate anywhere. no urinary symptoms. - History of Current Complaint Chief Complaint: EDAbdPain Time Seen by Provider: 12/08/18 14:38 Stated Complaint: ABD PAIN PER PT Pain Intensity: 6 - Allergy/Home Medications Allergies/Adverse Reactions: Allergies Allergy/AdvReac Type Severity Reaction Status Date / Time No Known Allergies Allergy Verified 12/08/18 14:36 PMH/Surg Hx/FS Hx/Imm Hx Endocrine/Hematology History: Denies: Hx Anticoagulant Therapy, Hx Diabetes, Hx Thyroid Disease Cardiovascular History: Denies: Hx Hypertension, Hx Pacemaker/ICD Respiratory History: Denies: Hx Asthma, Hx Chronic Obstructive Pulmonary Disease (COPD) GI History: Denies: Hx Ulcer History: Denies: Hx Renal Disease Neurological History: Denies: Hx Dementia, Hx Seizures Psychiatric History: Denies: Hx Substance Abuse - Cancer History Cancer Type, Location and Year: N - Surgical History Surgery Procedure, Year, and Place: Left ear tubes. Left wrist surgery fracture 's repaired/resetting - Immunization History Date of Tetanus Vaccine: THis year, per patient. Infectious Disease History: No Infectious Disease History: Denies: Hx Clostridium Difficile, Hx Hepatitis, Hx Human Immunodeficiency Virus (HIV), Hx of Known/Suspected MRSA, Hx Shingles, Hx Tuberculosis, Hx Known/ Suspected VRE, Hx Known/Suspected VRSA, History Other Infectious Disease, Traveled Outside the [place] in Last 30 Days - Family History Known Family History: Positive: Cardiac Disease - grandfather - CHF, Hypertension, Other - Colon - CA, RA Family History: Colon - CA, RA - Social History Alcohol Use: None Alcohol Amount: 1-2 drinks per night Substance Use Type: Reports: None Hx Tobacco Use: No Smoking Status (MU): Light Every Day Tobacco Smoker Type: Cigarettes Amount Used/How Often: cigarette here and there, not an every day smoker Have You Smoked in the Last Year: No Review of Systems Negative: Fever Negative: Chest Pain Negative: Shortness Of Breath Positive: Abdominal Pain. Negative: Vomiting, Diarrhea, Nausea All Other Systems Reviewed And Are Negative: Yes Physical Exam Triage Information Reviewed: Yes Vital Signs On Initial Exam: Initial Vitals Temp Pulse Resp BP Pulse Ox 98.1 F 82 17 122/77 98 12/08/18 14:35 12/08/18 14:35 12/08/18 14:35 12/08/18 14:35 12/08/18 14:35 Vital Signs Reviewed: Yes Appearance: Positive: Well-Appearing Skin: Positive: Warm, Dry Head/Face: Positive: Normal Head/Face Inspection Eyes: Positive: Normal, Conjunctiva Clear ENT: Positive: Pharynx normal Respiratory/Lung Sounds: Positive: Clear to Auscultation, Breath Sounds Present Cardiovascular: Positive: Normal, RRR Abdomen Description: Positive: Soft, Other: - tenderness greatest in RLQ, mild tenderness in LLQ Bowel Sounds: Positive: Present Musculoskeletal: Positive: Normal Neurological: Positive: Normal Psychiatric: Positive: Normal Diagnostics - Vital Signs Vital Signs Temp Pulse Resp BP Pulse Ox 12/08/18 14:35 98.1 F 82 17 122/77 98 - Laboratory Result Diagrams: 12/08/18 15:28 12/08/18 15:28 Lab Statement: Any lab studies that have been ordered have been reviewed, and results considered in the medical decision making process. - CT abd CT Interpretation Completed By: Radiologist Summary of CT Findings: IMPRESSION: No acute intra-abdominal pathology. Study limited secondary to. patient respiratory motion. Re-Evaluation - Re-Evaluation First Eval Re-Evaluation Time: 16:15 Change: Improved Comment: pain is worst, more tender in RLQ so will get CT Second Eval Re-Evaluation Time: 17:42 Change: Improved Comment: patient states does not want CT anymore and pain resolved Third Eval Comment: patient now wants a CT GIGU Course/Dx - Course Course Of Treatment: 23-year-old male presents with sudden onset of lower abdominal pain today. He states the pain radiates across her abdomen. Has been going on for 3 hours. He states the pain was severe but now is better. he states that it hurt to move. no fever. no decrease in appetite. Denies any nausea vomiting. No urinary symptoms. no diarrhea or constipation. had normal bowel movement today. Pain does not radiate anywhere. no urinary symptoms. on exam tenderness lower abd. afebrile. no rebound. wbc normal. crp normal. on reevaulation patient has increased pain in RLQ so will get CT. CT shows no acute findings. will discharge to have follow up with primary. patient understand and agrees with plan. - Diagnoses Differential Diagnoses - Male: Appendicitis, Gastroenteritis (Viral), Urinary Tract Infection Provider Diagnoses: Abdominal pain Discharge - Sign-Out/Discharge Documenting (check all that apply): Patient Departure Patient Received Moderate/Deep Sedation with Procedure: No - Discharge Plan Condition: Good Disposition: HOME Patient Education Materials: Acute Abdominal Pain (DC) Referrals: Alan Gaspar MD [Primary Care Provider] - Additional Instructions: Drink small amounts of fluid as tolerated When able to eat follow BRAT diet: Bananas, rice, applesauce, toast Take ibuprofen or Tylenol for pain as needed every 6 hours Follow up with primary within 5 days Return to ED if develop fever, severe abdominal pain, or any new or worsening symptoms - Billing Disposition and Condition Condition: GOOD Disposition: Home
[2018-12-08 15:40] LABS: ABS Eosinophils 0.2 10^3/ul (0-0.6); ABS Lymphocytes 2.6 10^3/ul (1.0-4.8); ABS Monocytes 0.7 10^3/ul (0-0.8); ABS Neutrophils 3.7 10^3/ul (1.5-7.7); Hematocrit 44 % (42-52); Hemoglobin 15.1 g/dL (14.0-18.0); Mean Corpuscular HGB Conc 35 g/dL (31-36); Mean Corpuscular Hemoglobin 32 pg (27-31); Mean Corpuscular Volume 91 fL (80-94); Nucleated Red Blood Cells % 0.1; Platelet Count 235 10^3/uL (150-450); Red Blood Count 4.78 10^6 /uL (4.18-5.48); Red Cell Distribution Width 13 % (10-15); White Blood Count 7.3 10^3/uL (3.5-10.8)
[2018-12-08] MEDS ORDERED: Ketorolac INJ* 30 MG/ML 1 ML VIAL IV PUSH ONE (16:14)
[2018-12-08] MEDS ORDERED: NS 0.9% 1000 ML** 1,000 ML IV ONE (16:14)
[2018-12-08 16:21] LABS: ALT 26 U/L (7-52); AST 20 U/L (13-39); Albumin 4.5 g/dL (3.2-5.2); Albumin/Globulin Ratio 1.6 (1-3); Alkaline Phosphatase 88 U/L (34-104); Anion Gap 6 mmol/L (2-11); BUN/Creatinine Ratio 11.7 (8-20); Blood Urea Nitrogen 9 mg/dL (6-24); C Reactive Protein < 1.00 mg/L (<8.01); CO2 Carbon Dioxide 28 mmol/L (22-32); Calcium 9.6 mg/dL (8.6-10.3); Chloride 105 mmol/L (101-111); EGFR African American 150.2 (>60); EGFR Non-African American 124.1 (>60); Globulin 2.8 g/dL (2-4); Glucose 97 mg/dL (70-100); Potassium 4.4 mmol/L (3.5-5.0); Sodium 139 mmol/L (135-145); Total Protein 7.3 g/dL (6.4-8.9)
[2018-12-08] MEDS ORDERED: Iohexol 300* (CONTRAST) 10 ML SDV IV ONE (16:33)
[2018-12-08 19:14] VITALS: BP 105/59
== END 2018-12-08 19:13 | disposition home or self-care (01) ==
LOC: ED 14:33
DX: R10.30 Lower abdominal pain, unspecified (principal); F17.210 Nicotine dependence, cigarettes, uncomplicated
CPT/HCPCS: 36415; 74177; 80053; 83605; 83690; 85025; 86140; 96361; 96374; 99284; J1885; Q9967

== ENCOUNTER 2018-12-09 16:11 | Emergency (ER) | payer BC ==
[2018-12-09 16:20] VITALS: BP 99/51
--- NOTE | 2018-12-09 17:27 | UC ---
Respiratory Complaint HPI - HPI Summary HPI Summary: 23 y/o male presents to the urgent care c/o Symptoms started one month ago- bronchitis diagnosis two weeks ago. Took all the meds, finished yesterday. Wants to make sure he gets totally better. - History of Current Complaint Chief Complaint: UCRespiratory Stated Complaint: URI Time Seen by Provider: 12/09/18 17:25 Hx Obtained From: Patient Onset/Duration: Gradual Onset Pain Intensity: 0 - Allergies/Home Medications Allergies/Adverse Reactions: Allergies Allergy/AdvReac Type Severity Reaction Status Date / Time No Known Allergies Allergy Verified 12/09/18 16:20 PMH/Surg Hx/FS Hx/Imm Hx Other History Of: Negative For: Anticoagulant Therapy - Surgical History Surgical History: Yes Surgery Procedure, Year, and Place: Left ear tubes. Left wrist surgery fracture 's repaired/resetting - Family History Known Family History: Positive: Cardiac Disease - grandfather - CHF, Hypertension, Other - Colon - CA, RA Family History: Colon - [place], RA - Social History Alcohol Use: None Alcohol Amount: 1-2 drinks per night Substance Use Type: None Smoking Status (MU): Current Some Day Smoker Type: Cigarettes Amount Used/How Often: cigarette here and there, not an every day smoker Have You Smoked in the Last Year: No - Immunization History Most Recent Influenza Vaccination: not this season Most Recent Tetanus Shot: 2013 Physical Exam - Summary Physical Exam Summary: Vitals: reviewed General: Well developed, well-nourished male patient with NAD. Head and face: Normocephalic and atraumatic, Positive tenderness over the frontal and maxillary sinuses.. Eyes: PERRLA, EOMI x 2. Normal conjunctiva. No eye discharge. ENT: Ears and TM with normal limits. Nose: edematous and erythematous nasal mucosa with with yellowish discharge and erythematous mucosa. Pharynx with erythema, no exudate. clear PND Neck: Supple, no JVD, no carotid bruits and no lymphadenopathy. Lungs: clear, no rales, no rhonchi, no wheezes. CVS: RRR, S1 and S2 present no murmurs or gallops appreciated. Abdomen: soft nontender with positive bowel sounds. Extremities: no edema noted. Neuro: WNL. Skin: warm and dry Triage Information Reviewed: Yes Vital Signs: Initial Vital Signs Temp 98.3 F 12/09/18 16:14 Pulse 63 12/09/18 16:14 Resp 12 12/09/18 16:14 BP 99/51 12/09/18 16:14 Pulse Ox 100 12/09/18 16:14 Respiratory Course/Dx - Differential Dx/Diagnosis Differential Diagnosis/HQI/PQRI: Asthma, Bronchitis, Influenza, Lower Resp Infection, Sinusitis Provider Diagnosis: Acute rhinosinusitis, Cough Discharge - Sign-Out/Discharge Documenting (check all that apply): Patient Departure - d/C home All imaging exams completed and their final reports reviewed: No Studies - Discharge Plan Condition: Stable Disposition: HOME Prescriptions: Benzonatate CAP* [Tessalon 100 MG CAP*] 100 mg PO TID #21 cap Fluticasone NASAL SPRAY 50MCG* [Flonase NASAL SPRAY 50MCG*] 2 spray BOTH NARES DAILY #1 btl Patient Education Materials: Rhinosinusitis (ED) Referrals: Alan Gaspar MD [Primary Care Provider] - 1 Week Additional Instructions: 1-Use Flonase as directed to help drain fluid. Also buy saline drops to clear sinuses. Increase hydration, rest and eat well. 2-Take Tessalon tabs PO to alleviates cough. Continue using your albuterol inhaler to alleviate cough and bronchospasm. 3-Please f/u w/ your PCP in 1 week if symptoms do not improve for further management and treatment - Billing Disposition and Condition Condition: STABLE Disposition: Home
== END 2018-12-09 18:20 | disposition home or self-care (01) ==
LOC: UCEAST 16:11
DX: J01.90 Acute sinusitis, unspecified (principal); R05 Cough; F17.210 Nicotine dependence, cigarettes, uncomplicated
CPT/HCPCS: 99212; G0463

== ENCOUNTER 2018-12-22 11:19 | Emergency (ER) | payer BC ==
[2018-12-22 11:37] VITALS: BP 106/64
--- NOTE | 2018-12-22 11:55 | UC ---
Skin Complaint HPI - HPI Summary HPI Summary: 23-year-old male presents with complaints of tick bite to his right lower leg. States 2 days ago he discovered 3 ticks embedded to his right calf one of which was engorged. States he removed them immediately. Denies fever, chills, flulike illness, bull's-eye rash, arthralgias, or myalgias. - History of Current Complaint Chief Complaint: UCSkin Time Seen by Provider: 12/22/18 11:51 Stated Complaint: TICK Hx Obtained From: Patient Pain Intensity: 0 - Allergy/Home Medications Allergies/Adverse Reactions: Allergies Allergy/AdvReac Type Severity Reaction Status Date / Time No Known Allergies Allergy Verified 12/22/18 11:38 PMH/Surg Hx/FS Hx/Imm Hx Previously Healthy: Yes - Denies significant PMH Other History Of: Negative For: Anticoagulant Therapy - Surgical History Surgical History: Yes Surgery Procedure, Year, and Place: Left ear tubes. Left wrist surgery fracture 's repaired/resetting - Family History Known Family History: Positive: Cardiac Disease - grandfather - CHF, Hypertension, Other - Colon - CA, RA Family History: Colon - [place], RA - Social History Occupation: Employed Full-time Lives: With Family Alcohol Use: None Alcohol Amount: 1-2 drinks per night Substance Use Type: None Smoking Status (MU): Current Some Day Smoker Type: Cigarettes Amount Used/How Often: cigarette here and there, not an every day smoker Have You Smoked in the Last Year: No - Immunization History Most Recent Influenza Vaccination: not this season Most Recent Tetanus Shot: 2013 Vaccination Up to Date: Yes Review of Systems All Other Systems Reviewed And Are Negative: Yes Constitutional: Negative: Fever, Chills Skin: Positive: Other - See HPI. Negative: Rash Respiratory: Positive: Negative Cardiovascular: Positive: Negative Gastrointestinal: Positive: Negative Genitourinary: Positive: Negative Musculoskeletal: Negative: Arthralgia, Myalgia Neurological: Positive: Negative Is Patient Immunocompromised?: No Physical Exam - Summary Physical Exam Summary: GENERAL APPEARANCE: Well developed, well nourished, alert and cooperative, and appears to be in no acute distress. CARDIAC: Normal S1 and S2. No S3, S4 or murmurs. Rhythm is regular. There is no peripheral edema, cyanosis or pallor. Extremities are warm and well perfused. Capillary refill is less than 2 seconds. Peripheral pulses intact. LUNGS: Clear to auscultation without rales, rhonchi, wheezing or diminished breath sounds. ABDOMEN: Positive bowel sounds. Soft, nondistended, nontender. No guarding or rebound. No masses or hepatosplenomegally. MUSKULOSKELETAL: ROM intact to all extremities. No joint erythema or tenderness. Normal muscular development. Normal gait. EXTREMITIES: 3 erythematous papular lesions < 0.5 cm in diameter noted to the right medial calf. SKIN: Skin normal color, texture and turgor with no lesions or eruptions. Triage Information Reviewed: Yes Vital Signs: Initial Vital Signs Temp 98.4 F 12/22/18 11:35 Pulse 62 12/22/18 11:35 Resp 17 12/22/18 11:35 BP 106/64 12/22/18 11:35 Pulse Ox 100 12/22/18 11:35 Vital Signs Reviewed: Yes Course/Dx - Course Course Of Treatment: 23-year-old male presents with complaints of tick bite to his right lower leg. States 2 days ago he discovered 3 ticks embedded to his right calf one of which was engorged. States he removed them immediately. Denies fever, chills, flulike illness, bull's-eye rash, arthralgias, or myalgias. Afebrile. Vital signs stable. Patient had 3 erythematous papular lesions < 0.5 cm in diameter noted to the right medial calf. Based on his report of an engorged tick in that the bite occurred within the last 72 hours we'll treat him with a prophylactic dose of doxycycline 200 mg once. Reviewed signs and symptoms of Lyme disease with the patient. He is to follow-up with his primary care provider if needed. And discharge guidance and warning symptoms were also reviewed. Patient verbalizes understanding and agrees with plan of care. - Differential Diagnoses - Skin Complaint Differential Diagnoses: Local Allergic Reaction, Tick Born Illness - Diagnoses Provider Diagnosis: Tick bite of right lower leg Discharge - Sign-Out/Discharge Documenting (check all that apply): Patient Departure All imaging exams completed and their final reports reviewed: No Studies - Discharge Plan Condition: Stable Disposition: HOME Prescriptions: Doxycycline Hyclate 200 mg PO ONCE #2 tablet Patient Education Materials: Tick Bite (ED) Referrals: Alan Gaspar MD [Primary Care Provider] - 7 Days Additional Instructions: Ticks transmit infection only after they have attached and then taken a blood meal from their new host. A tick that has not attached cannot not pass any infection. Since the deer tick that transmits Lyme disease typically feeds for more than 36 hours before transmitting the organisim that causes Lyme disease, the risk of acquiring Lyme disease from an tick bite is extremely small, even in an area where the disease is common. With your history of the tick being engorged we will give you a dose of an antibiotic to help prevent the transmission of Lyme disease. Take doxycycline 200 mg once today. There is no benefit of blood testing for Lyme disease at the time of the tick bite because even people who become infected will not have a positive blood test until approximately two to six weeks after the tick bite. To try to avoid getting bitten by a tick, you can: * Wear shoes, long-sleeved shirts, and long pants when you go outside. Keep ticks away from your skin by tucking your pants into your socks. * Wear light colors so you can spot any ticks that get on your clothes. * Wear bug spray or cream that contains DEET. (Do not use DEET on babies younger than 2 months.) On your clothes and gear, you can use bug repellents that have a chemical called "permethrin." * Shower within 2 hours of being outdoors if you think you have been in an area where there are ticks. * Put dry clothes briefly (for about 4 minutes) in a dryer after being outdoors. * Check your clothes and body for ticks after being outdoors. Be sure to check your scalp, waist, armpits, groin, and backs of your knees. Check your children , too. After a tick bite, you will need to monitor for signs of Lyme disease over the next several weeks even if you have been given antibiotics to prevent the infection. Seek immediate medical attention if you develop a bullseye rash, fever, flu-like symptoms including headache, stiff neck, fatigue, muscle aches, joint pain or swelling. - Billing Disposition and Condition Condition: STABLE Disposition: Home
== END 2018-12-22 12:07 | disposition home or self-care (01) ==
LOC: UCEAST 11:19
DX: S80.861A Insect bite (nonvenomous), right lower leg, initial encounter (principal); W57.XXXA Bitten or stung by nonvenomous insect and other nonvenomous arthropods, initial encounter; Y92.9 Unspecified place or not applicable; F17.210 Nicotine dependence, cigarettes, uncomplicated
CPT/HCPCS: 99212; G0463